=== PATIENT | male | born 1960 | race Caucasian/White ===

== ENCOUNTER → 2024-11-28 08:03 | Outpatient (REF) | payer MEDICARE, OTHER, SELFPAY | LOC: HWRCS 08:03 | PROVIDERS: ATTENDING PHYSICIAN Nurse Practitioner Gerontology; FAMILY PHYSICIAN Physician Assistant Medical | DX: I25.10 Atherosclerotic heart disease of native coronary artery without angina pectoris (principal); R53.83 Other fatigue | CPT/HCPCS: 78452; 93017; A9500 ==

== ENCOUNTER → 2024-12-04 11:06 | Outpatient (REF) | payer MEDICARE, OTHER, SELFPAY | LOC: RCS 11:06 | PROVIDERS: ATTENDING PHYSICIAN Nurse Practitioner Gerontology; FAMILY PHYSICIAN Physician Assistant Medical | DX: I25.10 Atherosclerotic heart disease of native coronary artery without angina pectoris (principal) | CPT/HCPCS: 93306 ==

== ENCOUNTER → 2025-01-01 10:12 | Outpatient (REF) | payer MEDICARE, OTHER, SELFPAY | LOC: PAVMRI 10:12 | PROVIDERS: ATTENDING PHYSICIAN Physician Assistant Surgical; FAMILY PHYSICIAN Physician Assistant Medical | DX: M48.02 Spinal stenosis, cervical region (principal); M54.2 Cervicalgia; M54.12 Radiculopathy, cervical region | CPT/HCPCS: 72141 ==

== ENCOUNTER → 2025-02-27 09:49 | Outpatient (REF) | payer MEDICARE, OTHER, SELFPAY | LOC: PAVMRI 09:49 | PROVIDERS: ATTENDING PHYSICIAN Specialist; FAMILY PHYSICIAN Physician Assistant Medical | DX: G31.84 Mild cognitive impairment of uncertain or unknown etiology (principal) | CPT/HCPCS: 70551 ==

== ENCOUNTER → 2025-04-09 08:20 | Outpatient (REF) | payer MEDICARE, OTHER, SELFPAY ==
[2025-04-09 11:12] LABS: Hematocrit 43.6 % (39.0-52.0); Hemoglobin 15.4 g/dL (13.0-18.0); Mean Corp Hgb Conc. 35.3 g/dL (33.0-37.0); Mean Corpuscular Hgb 30.8 pg (27.0-31.0); Mean Corpuscular Volume 87.2 fL (80.0-94.0); Mean Platelet Volume 9.7 fL (7.4-10.4); Platelet Count 229 10^3/uL (130-400); Red Cell Dist. Width 12.4 % (11.5-14.5); White Blood Cell Count 7.7 10^3/uL (4.8-10.8)
[2025-04-09 12:22] LABS: ALT (SGPT) 18 U/L (0-50); AST (SGOT) 20 U/L (17-59); Albumin 4.7 g/dl (3.5-5.0); Alkaline Phosphatase 55 U/L (38-126); Blood Urea Nitrogen 15 mg/dl (9-20); Calcium 9.2 mg/dl (8.4-10.2); Carbon Dioxide 25 mmol/L (22-30); Chloride 104 mmol/L (98-107); Glucose 120 mg/dl (70-99); Potassium 4.9 mmol/L (3.5-5.1); Sodium 139 mmol/L (135-145); Total Bilirubin 0.9 mg/dl (0.2-1.3); Total Protein 7.3 g/dl (6.3-8.2); eGFR > 60.00
== END ==
LOC: SDSPAT 08:20
PROVIDERS: ATTENDING PHYSICIAN Orthopaedic Surgery Orthopaedic Surgery of the Spine; FAMILY PHYSICIAN Physician Assistant Medical; OTHER PHYSICIAN Internal Medicine
DX: Z01.818 Encounter for other preprocedural examination (principal)
CPT/HCPCS: 80053; 85027; 86850; 86900; 86901; 87070; 93005

== ENCOUNTER → 2025-04-10 07:57 | Outpatient (REF) | payer MEDICARE, OTHER, SELFPAY | LOC: HWRAD 07:57 | PROVIDERS: ATTENDING PHYSICIAN Internal Medicine Gastroenterology; FAMILY PHYSICIAN Physician Assistant Medical | DX: R10.0 Acute abdomen (principal); R10.30 Lower abdominal pain, unspecified | CPT/HCPCS: 74176 ==

== ENCOUNTER 2025-04-18 06:10 | Day surgery (SDC) | payer MEDICARE, OTHER, SELFPAY ==
[2025-04-09 13:27] VITALS: BMI 35.3
[2025-04-09 14:47] VITALS: BMI 35.3
--- NOTE | 2025-04-11 14:05 | PTCARENOTE ---
Patients 6/2 ECG abnormal- reviewed by Dr. Vazquez- no additional interventions required
[2025-04-18] VITALS (13 sets, daily range): BP systolic 144–174; BP diastolic 85–105; BMI 35.3
[2025-04-18] MEDS: LYRICA 150 MG PO (10:15)
[2025-04-18] MEDS: METHOCARBAMOL 1500 MG PO (10:15)
[2025-04-18] MEDS: CELEBREX 200 MG PO (10:15)
[2025-04-18] MEDS: TYLENOL 1000 MG PO (10:15)
[2025-04-18] MEDS: NORMOSOL-R/PLASMALYTE-A 1000 IV (10:16)
[2025-04-18] MEDS: DILAUDID 0.5 MG IV (13:41)
[2025-04-18] MEDS: DILAUDID 0.25 MG IV ×2 (14:02→14:21)
[2025-04-18] MEDS: ROXICODONE 5 MG PO (15:57)
== END 2025-04-18 16:35 | disposition home or self-care (01) ==
LOC: SDS 06:10
PROVIDERS: ATTENDING PHYSICIAN Orthopaedic Surgery Orthopaedic Surgery of the Spine
DX: M48.02 Spinal stenosis, cervical region (principal)
CPT/HCPCS: 22554; 22551; 22552; 22853; C1713; C1776; 72020; 86900; 86901

== ENCOUNTER 2025-04-20 21:14 | Inpatient (IN) | payer MEDICARE, OTHER, SELFPAY ==
[2025-04-20] VITALS (8 sets, daily range): BP systolic 137–169; BP diastolic 78–96; BMI 32.9; BMI 32.6
[2025-04-20 16:00] LABS: Hemoglobin 15.1 g/dL (13.0-18.0); Mean Corpuscular Hgb 31.1 pg (27.0-31.0); Mean Corpuscular Volume 86.6 fL (80.0-94.0); Mean Platelet Volume 9.2 fL (7.4-10.4); Platelet Count 208 10^3/uL (130-400); Red Blood Cell Count 4.85 10^6/uL (4.70-6.10); Red Cell Dist. Width 12.4 % (11.5-14.5); White Blood Cell Count 15.5 10^3/uL (4.8-10.8)
[2025-04-20 16:23] LABS: Troponin I < 0.012 ng/ml
[2025-04-20 16:37] LABS: ALT (SGPT) 17 U/L (0-50); AST (SGOT) 25 U/L (17-59); Albumin 4.7 g/dl (3.5-5.0); Alkaline Phosphatase 46 U/L (38-126); Blood Urea Nitrogen 22 mg/dl (9-20); Carbon Dioxide 25 mmol/L (22-30); Chloride 104 mmol/L (98-107); Glucose 161 mg/dl (70-99); Potassium 4.6 mmol/L (3.5-5.1); Sodium 139 mmol/L (135-145); Total Protein 7.6 g/dl (6.3-8.2); eGFR > 60.00
--- NOTE | 2025-04-20 16:53 | ED.GENMED ---
History of Present Illness
General
Chief Complaint: Swallowing Problem
Source: patient
Exam Limitations: none
Time Seen by Provider: 04/20/25 16:29
Nursing documentation reviewed up to this point in time: agreed with
History of Present Illness
History of Present Illness:
64-year-old male with history of NIDDM, HTN, OH, stent, chronic neck pain, back pain, neuropathy, on 04/18/2025 [address] C4-[address] Seun Velasquez.
Two days ago, after surgery, went home and vomited 'for 8 hours straight' since then his neck and upper chest wall muscles have been sore.
Next day he found he could not swallow without regurgitating it up. He tried water, tried to take his pills, even his saliva he has been spitting out. He feels everything is going 'into my wind pipe (pointing to right lung). cannot swallow anything
without coughing fit and spitting it up, burning and spasms in his esophagus..Denies fever or pain related to his surgery.
Past History
Past History
ED Past Medical History: CAD, HTN, Hypercholesterolemia, NIDDM, Psychiatric (Anxiety) and Other (Pancreatitis)
ED Past Surgical History: Orthopedic (Right knee surgery, right carpal tunnel surgery)
Social History
Tobacco: Non-smoker
Alcohol: Former
Drug: None
Employment: Employed
Family History
Family History: Negative Diabetes, Hypertension or CAD
Review of Systems
Review of Systems
Allergies reviewed?: Yes
All Other Systems: ROS reviewed and negative except as documented in HPI and ROS
Constitutional: Denies fever
EENT: Reports other (Unable to swallow without severe coughing spells and feeling like 'it is going into my lungs.'); Denies sore throat
Respiratory: Reports cough (With swallowing only); Denies trouble breathing
Cardiac: Denies chest pain
ABD/GI: Denies abdominal pain, nausea or vomiting
Musculoskeletal: Denies edema
Skin: Reports other (Small dry gauze dressing anterior neck)
Neurological: Denies dizzy, headache, weakness or numbness
Phy Exam
Physical Exam
Physical Exam:
GENERAL: No acute distress. A&Ox3.
CONSTITUTIONAL: Afebrile.
EYES: clear, conjunctivae normal
ENMT: moist mucus membranes, Pharynx nl, speaking well.
RESPIRATORY: Regular respirations, nonlabored, lungs clear.
CARDIOVASCULAR: Regular rate and rhythm, no murmurs, no rubs. Mildly tachycardic at 105.
GI: Soft, nontender, normal BS
MUSCULOSKELETAL: Moves with ease. Well perfused.
SKIN: Warm, dry, pink, Small dry gauze dressing anterior neck with mild old ecchymosis immediately around it
PSYCH: Normal mood and affect. Well kept, interactive and appropriate
NEUROLOGIC: Awake, alert and oriented. No focal neurological deficits
Course
Orders/Labs/Results
Orders:
Orders
04/20/25 15:12
Electrocardiogram (*1) Urgent
Reason for Study: Abdominal Pain
EKG- Treatment ONCE
04/20/25 15:53
Complete Blood Count/No Diff Urgent
Comprehensive Metabolic Panel Urgent
Troponin I Urgent
04/20/25 17:45
CR Soft Tissue Neck Urgent
Comment:
Reason For Exam: trouble swallowing 2 days post neck spine surgery
04/20/25 17:46
CR Chest - 2 Views Urgent
Comment:
Reason For Exam: feels he is aspirating 2 days post ortho neck surg
04/20/25 18:06
Pantoprazole [Protonix IV] 80 mg IV NOW STA
04/20/25 18:07
0.9% Sodium Chloride 1000 ml [Nss] 1,000 ml IV BOLUS
04/20/25 20:[address] Non Medication Order As Directed
Physician Order: please complete med rec. thanks
Above order entered?: Yes
04/20/25 20:59
Admit/Transfer Patient As Directed
Co-Sign Provider:
Level of Care: Inpatient admission
Assign to:: Medical/Surgical
Physician / Group: abdoul mendoza
Diagnosis: GERD/esophagitis
Reason for Hospitalization: GERD/esophagitis
Expected length of stay greater than two midnights?: Yes
ELOS- Estimated Length of Stay in days: 3
I certify the patient meets the requirements for IP care: Yes
04/20/25 21:00
PRN Pain Medication Management As Directed
May give lesser potent ordered pain med per pt: Yes
preference::
Protocol:: Medication orders for pain may be administered in a
manner that supports deferring to patient preference
when the pt is:
- Requesting an ordered lesser potent pain medication.
Least to most potent pain medications are defined
as: acetaminophen < NSAID < tramadol < opioids
(morphine, oxycodone, hydromorphone).
- Requesting a lesser dose of the same medication IF
ORDERED.
- Requesting a less intrusive route of administration
if both routes are prescribed by the provider (PO <
IV).
04/20/25 21:01
Code Status As Directed
Resuscitation Status: Full Code
04/20/25 21:47
0.9% Sodium Chloride 1000 ml [Nss] 1,000 ml IV 100 mls/hr
Bisacodyl [Dulcolax] 10 mg RECTAL [id number] PRN
Docusate W/Senna [Senokot-S] 1 tablet PO BIDPRN PRN
Labetalol HCl [Trandate] 10 mg IV Q6HPRN PRN
Polyethylene Glycol Powder [Miralax] 17 grams PO DAILYPRN PRN
04/20/25 21:47
GASTROINTESTINAL CONSULT Routine
Consulting Provider: Salguti,Petra
Was physician already notified: Yes
Activity As Directed
Activity Level: As Tolerated
Vital Signs As Directed
Frequency: Per unit guidelines
Speech Therapy Eval & Treat Routine
DX Deep Vein Thrombosis Video Routine
04/20/25 22:00
CeFAZolin 1 GRAM [Ancef] 1 gram in 5 ml IV Q8H
Flush (0.9% Sodium Chloride) [Flush (Nss)] See Dose Instructions IV PER PROTOCOL
04/21/25 04:26
Complete Blood Count/With Diff IN AM
04/21/25 Breakfast
NPO
Allow oral meds: No
Allow clear liquids: Sips of Clears
NPO with Ice Chips: Yes
Comment: sips of clears with supervision teaspoon
04/21/25 08:00
Pantoprazole [Protonix IV] 40 mg IV BID
04/21/25 18:00
Enoxaparin Sodium [Lovenox] 40 mg SC QPM
04/22/25 04:41
Complete Blood Count/With Diff IN AM
04/23/25 06:00
Complete Blood Count/With Diff IN AM
Abnormal Lab Results
04/20/25
15:53
WBC 15.5 H 10^3/uL
(4.8-10.8)
MCH 31.1 H pg
(27.0-31.0)
BUN 22 H mg/dl
(9-20)
Glucose 161 H mg/dl
(70-99)
Total Bilirubin 3.0 H mg/dl
(0.2-1.3)
04/20/25 15:53
04/20/25 15:53
Vital Signs
Initial and Last Documented VS:
Initial Vital Signs
Temp Pulse Resp BP Pulse Ox
99.4 F 113 16 151/96 98
04/20/25 15:02 04/20/25 15:02 04/20/25 15:02 04/20/25 15:02 04/20/25 15:02
Last Documented Vital Signs
Temp Pulse Resp BP Pulse Ox
98.2 F 85 16 151/73 96
04/22/25 07:30 04/22/25 07:30 04/22/25 07:30 04/22/25 07:30 04/22/25 07:30
Receiving Lead consulted with Physician
Receiving Lead consulted with physician?: Yes
Name of Physician Consulted: Elly
MDM/Problems Addressed
Differential Diagnosis Includes:
GERD, esophagitis, esophageal obstruction
MDM/Problems Addressed:
64-year-old male with history of NIDDM, HTN, OH, stent, chronic neck pain, back pain, neuropathy, on 04/18/2025 had C4-[address] Seun Velasquez.
Two days ago, after surgery, went home and vomited 'for 8 hours straight' since then his neck and upper chest wall muscles have been sore.
Next day he found he could not swallow without regurgitating it up. He tried water, tried to take his pills, even his saliva he has been spitting out. He feels everything is going 'into my wind pipe (pointing to right lung). Denies fever or pain
related to his surgery.
EKG: Sinus tachycardia with a rate of 105, no change from previous
5:30 PM:
CBC: WBC 15.5 most likely reactive to surgery, vomiting, coughing spells, stress reaction
CMP: No clinically significant abnormalities
*EKG
EKG Intrepretation Date: 04/20/25
Interpretation: abnormal
Rate: tachycardiac
Rhythm: sinus
Ely: normal axis
Interval: normal interval
QRS Pattern: normal QRS
Ischemia: no ischemia
*Critical Care Note
Total Time (30-74mins, 75-104mins- exclusive of procedures): Not Applicable
ED Attending Note
-
Portions of this chart may have been created with voice recognition software.� Occasional wrong word or��sound alike� substitutions may have occurred due to the inherent limitations of voice recognition software.
Discharge Plan
Departure
Patient Disposition: Admit
Date of Disposition: 04/20/25
Time of Disposition: 20:14
Admit to: Med/Surg
Presentation/result/management discussed w/ accepting MD/DO: Hospitalist
Condition: Good
Discharge Problem:
Dysphagia
Interventions
Interventions:
*Risk Screen - Suicide Last Done: 04/20/25 22:09
*General Assessment Last Done: 04/20/25 17:27
*Neglect/Abuse Screening Last Done: 04/20/25 17:27
*ED- Fall Risk Assessment Last Done: 04/20/25 17:27
*ED COVID-19 Vaccine History Last Done: 04/20/25 21:59
*Nursing Disposition Last Done: 04/20/25 21:44
ED-EENT Assessment Last Done: 04/20/25 17:27
YN-Ggfmkv-Ssiufnacbk Assessment Last Done: 04/20/25 17:27
ED- Pulmonary Assessment Last Done: 04/20/25 17:27
ED- Neurological Assessment Last Done: 04/20/25 17:27
ED Swallowing Screen Last Done: 04/20/25 19:26
Discharge Date and Time
Discharge Date/Time: 04/20/25 21:44
[2025-04-20] MEDS: PROTONIX IV 80 MG IV (18:15)
[2025-04-20] MEDS: NSS 1000 IV ×2 (18:15→22:14)
--- NOTE | 2025-04-20 20:19 | HPS.HSE ---
Addendum entered and electronically signed by Adelita Solorzano DO 04/20/25 22:05:
Dr. Seun Ruff texted back. He is currently at a conference in [place] and will be home on Wednesday, and will see the patient then. In the interim, he noted that the patient had a very thick neck and they had to retract his esophagus a fair
amount and he is recommending, Decadron 10 mg IV every 8 hours. He said if there are any issues he would have to be transferred to [place]. If the diagnosis is dysphagia, causing symptoms, the plan will be to continue the steroids. Monitor for
symptoms and if he improves with steroids he can go home. We will obtain a swallowing study as well and speech evaluation.
Addendum entered and electronically signed by Adelita Solorzano, 04/20/25 21:32:
Patient is seen and examined. I have reviewed the patient with see above and agree with her history and physical and assessment and plan of care as per below. In the emergency department the patient continues to have inability to tolerate orals.
For this reason they did not try a GI cocktail. The surgeon who performed his cervical spine surgery was notified that the patient is in the emergency department. The CT scan of his neck shows appropriate postop findings. Chest x-ray was
unremarkable. In the emergency department he received IV Protonix and IV fluids. He is only urinated 1 time today and he said it was dark urine. He denies chest pain, no shortness of breath, no abdominal pain, no dysuria.
Vital signs remarkable for blood pressure 169/88, pulse 101, temperature 99.4
Physical exam findings remarkable for abdomen is soft nontender nondistended normoactive bowel sounds, cardiovascular regular rate and rhythm no murmurs or gallops, lungs are clear to auscultation bilaterally no wheezes rales rhonchi, neuro no focal
deficits and grossly intact
Labs remarkable for WBC 15.5, BUN 22, glucose 161, total bilirubin 3.0
Assessment and plan of care
# Dysphagia, vomiting status post C4-6 ACDF on April 18. The patient denies abdominal pain at this time. His total bilirubin is noted to be 3.0. He has no abdominal pain on examination. We will consult gastroenterology, obtain a video swallow
study, continue the patient on IV fluids, n.p.o. status, IV PPI therapy, IV Zofran as needed
-Repeat LFTs in the morning, hold off on ultrasound of the abdomen for now pending repeat labs, if the patient develops abdominal pain will order ultrasound of the abdomen.
-The patient was ordered Keflex p.o. outpatient postoperatively, will start the patient on IV Ancef for postoperative antibiotic coverage.
# Essential hypertension
-Hold on oral medications at this time, continue IV labetalol as needed
Original Note:
Family Physician
-
Family Physician: Kathleen Bruno
Chief Complaint
-
vomiting,unable to swallow
History of Present Illness
64-year-old male with history of NIDDM, HTN, [place], stent, chronic neck pain, back pain, neuropathy, on 04/18/2025 had C4-[address] Seun Velasquez. started vomiting as soon as he got home for straight 6 hours. patient was not able to eat or drink. it
will regurgitate as soon as he start to drink or eat. he gets the coughing spells. patient complained of severe esophageal spasm and get pain in his chest muscles. he thinks that everything he eat and drinks going to lungs. denied abdominal pain,
diarrhea. denied fever, chills, chest pain,sob. denied MCGEE,dizzy or syncope. denied dysuria or hematuria.
chest x ray negative. soft tissue neck pending. Patient received normal saline, Protonix in ER. Admitted for further management
Colonoscopy and EGD 2 weeks ago with no acute finding
Medical History
Past Medical History
Past Medical History: Reports Other
Additional Past Medical History:
Insomnia
Type 2 diabetes
Hypertension
Coronary artery disease
Bladder retention
Hyperlipidemia
NSVT
PACs
Past Surgical History: Reports Other
Additional Past Surgical History:
Cholecystectomy
Meniscal tear repair
Carpal tunnel release
retina surgery
Social History
Tobacco: Former Smoker
Alcohol: Former
Drug: Marijuana
Family History
Family History: Not pertinent
Allergies / Home Medications
Allergies reflects when Allergies were last updated in [employer].
Home Medications with original date entered in [employer]
Allergy/Medication List:
Allergies
Allergy/AdvReac Type Severity Reaction Status Date / Time
mold Allergy wheezing/stuffy Verified 04/18/25 09:51
nose
ramipril (From Altace) Allergy Rash Verified 04/18/25 09:51
Home Medications
Ketorolac Eye Drops 1 drp LEFT EYE QID 04/11/25
Medical Marijuana 1 dose inhalation PRN PRN anxiety/pain 04/11/25
Men's Multivitamin Gummies 1 gum PO DAILY 04/11/25
Nitric Oxide Tablet 04/11/25
Nitric Oxide Tablet 1 dose PO DAILY 04/11/25
aspirin 81 mg tablet 81 mg PO DAILY 04/11/25
famotidine 40 mg tablet 40 mg PO DAILY 04/11/25
gabapentin 100 mg tablet 100 mg PO QID 04/11/25
pantoprazole 40 mg tablet,delayed release 40 mg PO DAILY 04/11/25
sertraline 50 mg tablet 50 mg PO DAILY 04/11/25
solifenacin 10 mg tablet 10 mg PO DAILY 04/11/25
trazodone 100 mg tablet 100 mg PO HS 04/11/25
metoprolol succinate 50 mg tablet,extended release 24 hr 50 mg PO DAILY 04/18/25
semaglutide 1 mg/0.2 mL subcutaneous syringe mg SC 04/18/25
Review of Systems
-
Constitutional: Reports No Symptoms
EENT: Reports No Symptoms
Respiratory: Reports No Symptoms
Cardiac: Reports No Symptoms
Abdomen/GI: Reports Vomiting and Other (Esophageal spasm, regurgitation)
: Reports No Symptoms
Musculoskeletal: Reports No Symptoms
Skin: Reports No Symptoms
Neurological: Reports No Symptoms
Endocrine: Reports No Symptoms
Hematologic/Lymphatic: Reports No Symptoms
Psych: Reports No Symptoms
Physical Exam
Vital Signs
Vital Signs
Temp Pulse Resp BP Pulse Ox
99.4 F 105 18 157/79 99
04/20/25 15:02 04/20/25 19:17 04/20/25 19:17 04/20/25 19:16 04/20/25 19:55
Physical Exam
General: Well Developed, Well Nourished and No Apparent Distress
HEENT: NormoCephalic, Moist mucous membranes and Atraumatic
Respiratory: Clear
Cardiac: S1/S2 and Regular Rhythm; No Murmur or Rub
GI: Soft, Non Tender, Non Distended and Normal Bowel Sounds; No Organomegaly
Rectal: Deferred by Provider
Musculoskeletal: No Clubbing, No Cyanosis and No Edema
Skin: No Rash
Neuro: AO x 3 and Nonfocal/grossly intact
Psych: Calm
Laboratory Results
-
04/20/25 15:53
04/20/25 15:53
Laboratory Results
Total Bilirubin 3.0 mg/dl (0.2-1.3) H 04/20/25 15:53
AST 25 U/L (17-59) 04/20/25 15:53
ALT 17 U/L (0-50) 04/20/25 15:53
Alkaline Phosphatase 46 U/L (38-126) 04/20/25 15:53
Troponin I < 0.012 ng/ml 04/20/25 15:53
Data Reviewed
-
Diagnostic Radiology: Report Reviewed by me
Lab Data: Labs Reviewed by me
Impression/Plan
-
# Dysphagia/burning and spasm concerns for GERD/esophagitis
- Chest x-ray with no acute finding
-Soft tissue neck pending
- Colonoscopy and EGD with 2 weeks ago with no acute findings
- IV PPI continued
-fluid for hydration
-keep patient NPO
-speech consult
# Leukocytosis likely stress reaction
- WBCs 15.5, patient is afebrile
- GI consult
#hyperbili
-hxt of gallstones
-LFT in AM
-denied any abdominal pain
# Recent C4 C6 ACDF
- orthopedic consulted
-iv Ancef post operatively
#Anxiety
# Hypertension
- labetalol continued
# DVT prophylaxis
- Lovenox subcu
# CODE STATUS
- Full code
--- NOTE | 2025-04-20 22:00 | TRANSFER ---
pt arrived from ED via stretcher accompanied by staff. pt ambulated from stretcher to bed without assistance. BP elevated at 155/81, HR 103, RR 16, 98% on RA, febrile at 100.1. provider notified. no new orders at this time. will continue to monitor
closely.
[2025-04-20] MEDS: ANCEF 5 IV (22:14)
[2025-04-20] MEDS: DECADRON 10 MG IV (22:24)
[2025-04-21 05:15] LABS: % Basophils 0.2 % (0-2); % Immature Granulocytes 0.5 % (0-0.5); % Lymphocytes 3.7 % (20.5-51.1); % Monocytes 2.3 % (1.7-9.3); % Neutrophils 93.3 % (42.2-75.2); Absolute Immature Granulocytes 0.1 10^3/uL (0-0.05); Absolute Lymphocytes 0.4 10^3/uL (1.2-3.4); Absolute Monocytes 0.3 10^3/uL (0.1-0.6); Hematocrit 38.5 % (39.0-52.0); Hemoglobin 13.5 g/dL (13.0-18.0); Mean Corp Hgb Conc. 35.1 g/dL (33.0-37.0); Mean Corpuscular Hgb 30.6 pg (27.0-31.0); Mean Corpuscular Volume 87.3 fL (80.0-94.0); Mean Platelet Volume 9.5 fL (7.4-10.4); Nucleated Red Blood Cells % 0 % (-); Platelet Count 184 10^3/uL (130-400); Red Blood Cell Count 4.41 10^6/uL (4.70-6.10); Red Cell Dist. Width 12.3 % (11.5-14.5); White Blood Cell Count 11.8 10^3/uL (4.8-10.8)
[2025-04-21] MEDS: ANCEF 5 IV ×3 (05:24→21:57)
[2025-04-21 05:42] LABS: ALT (SGPT) 15 U/L (0-50); AST (SGOT) 21 U/L (17-59); Alkaline Phosphatase 45 U/L (38-126); Direct Bilirubin 0.2 mg/dl (0.0-0.4); Total Bilirubin 1.8 mg/dl (0.2-1.3); Total Protein 6.5 g/dl (6.3-8.2)
[2025-04-21 07:50] VITALS: BP 119/84
[2025-04-21] MEDS: NSS 1000 IV ×2 (08:13→17:34)
[2025-04-21] MEDS: DECADRON 10 MG IV ×2 (08:14→16:44)
[2025-04-21] MEDS: PROTONIX IV 40 MG IV ×2 (08:15→20:01)
[2025-04-21] MEDS: NSS (PRESERVATIVE FREE) 10 ML IV ×2 (08:15→20:01)
--- NOTE | 2025-04-21 08:24 | CON.GI ---
Addendum entered and electronically signed by Petra Payan MD 04/21/25 10:46:
I saw and examined the patient.
The PARAFFINER or PA's note was reviewed and I agree with the note.
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 Seun Velasquez, 04/18/2025 presenting with complaints of
nausea and vomiting and chest spasms postsurgery. Patient reports that he was not able to swallow secretions, it was painful and he was choking on liquids. As per documentation, patient had a very thick neck and had to retract esophagus at fair
amount during the procedure. He was just started on Decadron 04/20/2025.
Patient reports that even prior to the surgery, he has had episodes of difficulties with swallowing cookies and cakes, this was happening at least twice a week. He had an upper endoscopy and colonoscopy with Dr. Tyson about 4 weeks ago or so, he
had to undergo dilation of the upper endoscopy, details not available to review and patient does not have the report. Colonoscopy showed 1 polyp as per patient. Other than that, he has history of chronic intermittent GERD, was on PPI/H2 linda as
outpatient, some IBS constipation and indigestion symptoms for which he has then follow-up with Dr. Tyson and has upcoming appointment as well.
-Dysphagia to liquids/solids, more recently postprocedure, some difficulties with secretions as well. Part of it could be edema related to the procedure with underlying history of solid food dysphagia.
At this time I would suggest video swallow exam - will follow speech pathology recommendations with the diet.
Decadron should help with postprocedure edema.
No need for EGD or upper GI.
Continue PPI IV twice daily.
-History of IBS�C
Continue follow-up with outpatient GI
-Elevated total bilirubin, mainly indirect, likely Gilbert's.
Will get abdominal ultrasound
Original Note:
Consultation
-
Date/Time Consultation Requested: 04/20/252146
Date/Time Consultation Performed: 04/21/25 [id number]
Requesting Provider: Jeanie DANIEL
Performing Provider: Dr Payan / Maria Teresa Ricketts PA-C
Reason for Consultation: dysphagia
Medical History
Chief Complaint / HPI
Chief Complaint: dysphagia
History of Present Illness:
This is a 64-year-old male with a past medical history of NIDDM, HTN, CAD/AK (s/p stent), chronic neck pain, back pain, neuropathy, GERD, IBS and colon polyps who underwent cervical spine surgery on 04/18/2025 (C4-6 anterior cervical discectomy and
fusion) by Dr. Seun Velasquez, developed nausea with persistent vomiting for 6 hours straight after surgery. The following day he complained of significant esophageal spasms and chest pain, with complaints of dysphagia, with coughing spells and
sensation that 'nothing is going down' after swallowing, and presented to the ER. He had workup in the ER including chest x-ray and x-ray of the soft tissues of the neck, which were negative. He was noted to be tachycardic, EKG showed sinus rhythm.
He denied any shortness of breath or difficulty breathing, but was concerned about aspiration and 'things going into my windpipe.' He denied any fever, chills or abdominal pain. The nausea and vomiting resolved after the initial episode following
surgery.
Patient reports a history of reflux and is established with GI, Dr. Vlad Tyson. He is on famotidine which he reports works well to control his GERD. About 6 months ago he did start to notice occasional dysphagia to solid foods (cookies, cake) that
felt like the food 'was going down slowly.' He had no odynophagia then and symptoms did not progressively worsen. He had an endoscopy with Dr. Tyson about 3 weeks ago, with dilation, and reported resolution of his dysphagia symptoms post-dilation.
He does not smoke or drink alcohol. 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 Labs upon arrival in the ER showed leukocytosis (WBC 15) with stable hemoglobin (15.1) and platelet count (208). Total
bilirubin was elevated at 3.0. Today upon repeat, it has decreased to 1.8 with direct bilirubin normal at 0.2. LFTs otherwise normal.
He was given IV fluids and started on Protonix in the ER. Per his Orthopedic surgeon, Dr. Velasquez, he did have to significantly retract the esophagus during surgery due to patient habitus/neck circumference and recommended starting IV Decadron to treat
the inflammation. Patient has gotten 2 doses of Decadron since yesterday evening and feels slightly better. The spasms have stopped. Currently denies any SOB or chest pain; and continues to deny nausea, vomiting, abdominal pain, fevers or chills
now. A video swallow study with Speech evaluation has been ordered, pending.
Past Medical History
Past Medical History: Other (NIDDM, HTN, CAD/AK (s/p stent), chronic neck pain, back pain, neuropathy, GERD, IBS and colon polyps )
Past Surgical History: Other (C4-6 anterior cervical discectomy and fusion (Dr Velasquez 04/18/25))
Social History
Tobacco: Former Smoker (quit 30 yrs ago)
Alcohol: Former (sober for the past 7.5 years)
Drug: Marijuana (medical marijuana)
Employment: Retired
Family History
Family History: Reviewed & Not Pertinent (no family history of any GI malignancies)
Allergies / Home Medications
Allergy/AdvReac Type Severity Reaction Status Date / Time
mold Allergy wheezing/stuffy Verified 04/18/25 09:51
nose
ramipril (From Altace) Allergy Rash Verified 04/18/25 09:51
�Medication �Instructions �Recorded
Medical Marijuana 1 dose inhalation PRN PRN 04/11/25
anxiety/pain
aspirin 81 mg tablet 81 mg PO DAILY 04/11/25
famotidine 40 mg tablet 40 mg PO DAILY 04/11/25
pantoprazole 40 mg tablet,delayed 40 mg PO DAILY 04/11/25
release
sertraline 50 mg tablet 50 mg PO DAILY 04/11/25
trazodone 100 mg tablet 100 mg PO HS 04/11/25
metoprolol succinate 50 mg 50 mg PO DAILY 04/18/25
tablet,extended release 24 hr
cephalexin 500 mg capsule 500 mg PO QID 04/20/25
oxycodone 5 mg tablet 10 mg PO Q4H PRN moderate pain 04/20/25
tizanidine 2 mg capsule 2 mg PO Q8H PRN muscle spasms 04/20/25
Review of Systems
-
History Source: Patient
All other systems: A 12 pt ROS was Negative except as stated above in HPI
Vital Signs
Temp Pulse Resp BP Pulse Ox
98.7 F 106 18 152/87 96
04/21/25 03:28 04/20/25 23:17 04/20/25 23:17 04/20/25 23:17 04/20/25 23:17
Physical Exam
Exam
General: Well Developed, Well Nourished and No Apparent Distress
HEENT: Anicteric
Respiratory: Clear
Cardiac: Regular Rhythm
GI: Soft, Non Tender, Non Distended and Normal Bowel Sounds
Skin: Warm and Dry
Neuro: AO x 3
Psych: Calm
Results
WBC 11.8 10^3/uL (4.8-10.8) H 04/21/25 04:26
Hgb 13.5 g/dL (13.0-18.0) 04/21/25 04:26
Hct 38.5 % (39.0-52.0) L 04/21/25 04:26
MCV 87.3 fL (80.0-94.0) 04/21/25 04:26
Plt Count 184 10^3/uL (130-400) 04/21/25 04:26
Absolute Neuts (auto) 11.0 10^3/uL (1.4-6.5) H 04/21/25 04:26
Sodium 139 mmol/L (135-145) 04/20/25 15:53
Potassium 4.6 mmol/L (3.5-5.1) 04/20/25 15:53
Chloride 104 mmol/L (98-107) 04/20/25 15:53
Carbon Dioxide 25 mmol/L (22-30) 04/20/25 15:53
BUN 22 mg/dl (9-20) H 04/20/25 15:53
Creatinine 1.0 mg/dL (0.7-1.3) 04/20/25 15:53
Calcium 10.0 mg/dl (8.4-10.2) 04/20/25 15:53
Total Bilirubin 1.8 mg/dl (0.2-1.3) H D 04/21/25 04:26
AST 21 U/L (17-59) 04/21/25 04:26
ALT 15 U/L (0-50) 04/21/25 04:26
Alkaline Phosphatase 45 U/L (38-126) 04/21/25 04:26
Diagnostic Image Results:
04/20/25 Chest x-ray:
No acute cardiopulmonary process.
04/20/25 Soft tissues of neck x-ray:
Post-operative changes with anterior plate and screws bridging the C4-C6 6 level with C4-C5 and C5-C6 disc spacers in position.
No radiopaque soft tissue foreign body is seen.
Prior GI Procedures:
EGD:
~3 weeks ago EGD (Dr. Vlad Tyson):
per patient, w/ dilation -- no report available for review
10/2020 EGD (Dr. Mcfadden)
Normal esophagus.
- Z-line regular, 40 cm from the incisors.
- Acute gastritis. Biopsied.
- Normal duodenal bulb, first portion of the duodenum
and second portion of the duodenum.
Path: biopsies negative (no evidence of H pylori or Cha's esophagus)
Colonoscopy:
~3 weeks ago Colonoscopy (Dr. Vlad Tyson):
per patient, normal -- no report available for review
10/2020 Colonoscopy (Dr. Mcfadden)
- Hemorrhoids found on perianal exam.
- Three 2 to 3 mm polyps in the cecum, removed with a
jumbo cold forceps. Resected and retrieved.
- One 5 mm polyp in the sigmoid colon, removed with a
cold snare. Resected and retrieved. Clip was placed.
- Two 3 mm polyps at the recto-sigmoid colon, removed
with a jumbo cold forceps. Resected and retrieved.
- Diverticulosis in the sigmoid colon and in the
distal descending colon.
- Non-bleeding internal hemorrhoids.
Path: Polyp of the sigmoid colon was tubular adenoma, otherwise hyperplastic polyps and unremarkable colorectal mucosa
Assessment / Plan
-
64-year-old male who underwent cervical spine surgery on 04/18/2025 (C4-6 anterior cervical discectomy and fusion) by Dr. Seun Velasquez, with complaints of nausea, vomiting (resolved now) and dysphagia post-op. He does have a history of GERD and was
experiencing solid food dysphagia for the past 6 months, which resolved after recent outpatient EGD with dilation with Dr. Tyson. Patient does feel slightly better today after receiving 2 doses of IV Decadron, as per Orthopedic surgeon. Esophageal
spasms have stopped. Currently denies any SOB, chest pain, nausea, vomiting, abdominal pain, fevers or chills. A video swallow study with Speech evaluation has been ordered, pending.
IMPRESSION / PLAN:
Dysphagia, acute, following cervical spine ACDF surgery 04/18/25 with significant manipulation/retraction of the esophagus during surgery
- etiology of the dysphagia due to post-op inflammation vs underyling motility disorder
- continue IV Decadron
- continue IV Protonix
- continue IV fluids
- await video swallow/Speech evaluation
- consider barium esophagram, will await the video swallow study results
- pt had a recent outpt EGD with dilation with his established GI, Dr. Tyson
GERD
- continue IV Protonix
Elevated bilirubin (indirect), with otherwise normal LFTs
- possible underlying Gilbert's
- T bili 3.0 upon admission, down to 1.8 today
- Direct bili 0.2, AST 21, ALT 15, alk phos 45
- continue to trend LFTs
- will order abdominal ultrasound to further assess liver
Colon Polyps
- prior h/o adenomas; up to date with colonoscopy
Other medical issues managed as per hospitalist team and Dr. Velasquez.
-
-
Thank you for consultation and allowing me to participate in the patient's care. Please call the business continuity director GI physician during the after hours with any questions or concerns.
--- NOTE | 2025-04-21 11:08 | W.PN.HOSP.TC ---
Today's Communication/Plan
-
see plan
Assessment / Plan
Assessment / Plan
Mr. Zen Camp is a 64 yo man with hx NIDDM, HTN, [place] s/p PCI, chronic neck pain s/p C4-6 ACDF (Anterior Cervical Discectomy and Fusion) by Dr. Kenny with post-op course complicated by vomiting and inability to eat or drink. He complained of
severe esophageal spasm. Case discussed with Dr. kenny who reported that they had to retract his esophagus a fair amount during surgery, IV Decadron recommended. CT neck with appropriate post-op findings.
CT Neck;FINDINGS and IMPRESSION: Surgery of the lower cervical spine is seen with anterior plate and screws bridging the C4-C6 6 level with C4-C5 and C5-C6 disc spacers in position on lateral view.
No radiopaque soft tissue foreign body is seen.
There is small volume air in the anterior soft tissues of the neck which is most likely the sequela of recent surgery.
# Dysphagia/burning and spasm concerns for GERD/esophagitis
-may be post-op complication/inflammation as esophagus was retracted fair amount during surgery
- Chest x-ray with no acute finding
-Soft tissue neck results above - post-op findings
-NPO
-continue IV Decadron, IV PPI, IVF
- Colonoscopy and EGD 2 weeks ago with no acute findings
-speech consult appreciated, FEES ordered
-appreciate GI consult
-Dr. Kenny to see patient tomorrow
# Leukocytosis likely stress reaction
#hyperbili - indirect
-hxt of gallstones
-LFT in AM
-denied any abdominal pain
-abdominal US ordered
# Recent C4 C6 ACDF
-IV Ancef post-op (patient was on Keflex at home)
-Dr. Kenny to see patient tomorrow
#Anxiety
# Hypertension
- labetalol continued
# DVT prophylaxis
- Lovenox subcu
# CODE STATUS
- Full code
Anticipated Discharge: > 48 hours
Subjective/Interval History
-
Date of Service: April 21, 2025
esophageal spasm frequency decreasing
difficulty swallowing
Objective Data
-
Labs:
Laboratory Results
04/21/25
04:26
WBC 11.8 H
Hgb 13.5
Hct 38.5 L
Plt Count 184
Total Bilirubin 1.8 H D
AST 21
ALT 15
Alkaline Phosphatase 45
Vital Signs:
Vital Signs
Temp Pulse Resp BP Pulse Ox
98.4 F 95 14 119/84 100
04/21/25 07:50 04/21/25 07:50 04/21/25 07:50 04/21/25 07:50 04/21/25 07:50
I&O
04/20/25 04/21/25 04/22/25
06:59 06:59 06:59
Intake Total 1000 / 1000
Output Total 175 / 175 200 / 200
Balance 825 / 825 -200 / -200
Review of Systems
-
History Source: Patient
All other systems: Reviewed and negative
Physical Exam
-
General: No Apparent Distress and Conversant
HEENT: PERRLA and Other (neck in brace post-op)
Respiratory: Clear to Auscultation
Cardiac: Regular Rhythm and S1/S2
GI: Soft and Nontender
Musculoskeletal: No Edema
Neuro: AO x 3
Psych: Calm
Data Reviewed
-
Diagnostic Radiology: Report Reviewed by me
Labs: Labs Reviewed by me
--- NOTE | 2025-04-21 11:37 | PTOTSP ---
Speech Therapy
Presentation: Patient was oriented and cooperative. Patient's speech and language appeared to be WNL during conversation. Patient's voice appeared to be harsh/ hoarse which patient states is 'new' since surgery. Patient expressed discomfort within
his neck and esophagus at baseline. Per documentation, patient endured a C4-C6 ACDF on 04/18 which the surgeon needed to retract patient's esophagus a bit which is likely correlated to his symptoms.
Patient stated that since his surgery, patient has experienced discomfort, swelling, dysphagia, and coughing.
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 Patient denied interest in further trials.
Given his presentation, recommend NPO at this time.
Recommend ARHP sparingly ice chips with supervision as tolerated after oral care.
Recommendations:
1) NPO at this time
2) ARHP ice chips sparingly with supervision after oral care
3) Aspiration precautions
4) VSE/ FEES when appropriate
5) Medications not by mouth
Plan: PLUMBING INSTALLER will continue to follow to diet advancement; pending hospitalization.
[2025-04-21 15:37] VITALS: BP 152/84
--- NOTE | 2025-04-21 16:34 | CM ---
Alert awake oriented patient who lives with his ex Rosanne who lives in a 1 story home with 2 step to enter.He is independent in driving and in all activities of daily living.He was offered VN he declined need.
No VN hx / No SNF history
Pharmacy [facility]
PCP DR Bruno
PLAN Home Declined VN
[2025-04-21] MEDS: LOVENOX 40 MG SC (17:29)
--- NOTE | 2025-04-21 18:20 | PTCARENOTE ---
Received patient this am AAOx3. Pt NPO. Speech Therapy saw patient an pt was kept NPO. IVF infusing without difficulty. Pt off unit today for abdominal U/S. This evening patient stated ' that he had his family bring him his zoloft pill cause he
felt his anxiety building'. Dr. Orr made aware that patient took his own zoloft an said something after he had taken it. Pt OOB ambulating in the room independently with a steady gait. Made patient comfortable. Cont to assess patient status.
[2025-04-21 23:31] VITALS: BP 145/80
[2025-04-22] MEDS: DECADRON 10 MG IV ×2 (00:03→09:30)
[2025-04-22] MEDS: NSS 1000 IV ×2 (02:22→11:42)
[2025-04-22] MEDS: ANCEF 5 IV ×3 (05:48→22:26)
[2025-04-22 05:50] LABS: % Basophils 0.1 % (0-2); % Immature Granulocytes 0.5 % (0-0.5); % Lymphocytes 4.1 % (20.5-51.1); % Monocytes 2.3 % (1.7-9.3); Absolute Immature Granulocytes 0.1 10^3/uL (0-0.05); Absolute Lymphocytes 0.5 10^3/uL (1.2-3.4); Absolute Monocytes 0.3 10^3/uL (0.1-0.6); Absolute Neutrophils 11.4 10^3/uL (1.4-6.5); Hematocrit 36.5 % (39.0-52.0); Hemoglobin 12.7 g/dL (13.0-18.0); Mean Corp Hgb Conc. 34.8 g/dL (33.0-37.0); Mean Corpuscular Hgb 30.7 pg (27.0-31.0); Mean Corpuscular Volume 88.2 fL (80.0-94.0); Mean Platelet Volume 9.7 fL (7.4-10.4); Nucleated Red Blood Cells % 0 % (-); Platelet Count 220 10^3/uL (130-400); Red Blood Cell Count 4.14 10^6/uL (4.70-6.10); Red Cell Dist. Width 12.2 % (11.5-14.5); White Blood Cell Count 12.3 10^3/uL (4.8-10.8)
[2025-04-22 06:15] LABS: Blood Urea Nitrogen 22 mg/dl (9-20); Carbon Dioxide 20 mmol/L (22-30); Chloride 111 mmol/L (98-107); Estimated Creatinine Clearance > 125 ml/min; Glucose 181 mg/dl (70-99); Magnesium 2.1 mg/dl (1.6-2.3); Phosphorus 2.9 mg/dl (2.5-4.5); Potassium 4.2 mmol/L (3.5-5.1); Sodium 140 mmol/L (135-145); eGFR > 60.00
[2025-04-22 07:30] VITALS: BP 151/73
--- NOTE | 2025-04-22 09:25 | CON.MD ---
Consultation - Medical
-
Spoke with patient yesterdat
Pt s/p 2 level acdf with dysphagia. No problems breathing
Had a very thick neck with retraction
No eveidence of airway issues.
Recommend steorids.
Id dysphagia improves and can tolerate PO can be discharged.
Otherwise should get swallowing study
Explained to patient I am out of town and will return late tonight
Will stop in late tonight or tomorrow if he is still in the hospital
[2025-04-22] MEDS: NSS (PRESERVATIVE FREE) 10 ML IV ×2 (09:33→20:18)
[2025-04-22] MEDS: PROTONIX IV 40 MG IV ×2 (09:33→20:18)
--- NOTE | 2025-04-22 09:45 | W.PN.GI.CBS2 ---
Today's Communication / Plan
-
Dysphagia, acute, following cervical spine ACDF surgery 04/18/25 with significant manipulation/retraction of the esophagus during surgery
- etiology of the dysphagia due to post-op inflammation with underyling motility disorder
- continue IV Decadron, IV Protonix
- continue IV hydration for now
- Reviewed speech pathology notes, they were unable to perform the video swallow exam due to aspiration with ice chips but as per patient, since after that he has been able to drink water without any choking or coughing.
Await speech evaluation today again.
- pt had a recent outpt EGD with dilation with his established GI, Dr. Tyson, no need to repeat EGD at this time.
GERD
- continue IV Protonix
-History of IBS�C
Continue follow-up with outpatient GI
-Elevated total bilirubin, mainly indirect, likely Gilbert's.
Fatty liver noted abdominal ultrasound. He will f/u with his primary GI for this.
Other medical issues managed as per hospitalist team and Dr. Velasquez.
Assessment / Plan
-
64-year-old male who underwent cervical spine surgery on 04/18/2025 (C4-6 anterior cervical discectomy and fusion) by Dr. Seun Velasquez, with complaints of nausea, vomiting (resolved now) and dysphagia post-op. He does have a history of GERD and was
experiencing solid food dysphagia for the past 6 months, which resolved after recent outpatient EGD with dilation with Dr. Tyson. Patient does feel slightly better today after receiving 2 doses of IV Decadron, as per Orthopedic surgeon. Esophageal
spasms have stopped. Currently denies any SOB, chest pain, nausea, vomiting, abdominal pain, fevers or chills. A video swallow study with Speech evaluation has been ordered, pending.
IMPRESSION / PLAN:
Dysphagia, acute, following cervical spine ACDF surgery 04/18/25 with significant manipulation/retraction of the esophagus during surgery
- etiology of the dysphagia due to post-op inflammation with underyling motility disorder
- continue IV Decadron, IV Protonix
- continue IV hydration for now
- Reviewed speech pathology notes, they were unable to perform the video swallow exam due to aspiration with ice chips but as per patient, since after that he has been able to drink water without any choking or coughing.
Await speech evaluation today again.
- pt had a recent outpt EGD with dilation with his established GI, Dr. Tyson, no need to repeat EGD at this time.
GERD
- continue IV Protonix
-History of IBS�C
Continue follow-up with outpatient GI
-Elevated total bilirubin, mainly indirect, likely Gilbert's.
Fatty liver noted abdominal ultrasound. He will f/u with his primary GI for this.
Other medical issues managed as per hospitalist team and Dr. Velasquez.
Subjective
Subjective
Date of Service: April 22, 2025
Patient denies any abdominal pain, nausea or vomiting. He reports that the neck pain is much improved when he swallows. Able to swallow his secretions without any problem. Passing flatus but no bowel movements yet.
Objective
Data Reviewed
Laboratory Data:
Laboratory Results
04/22/25 04:41
04/22/25 04:41
Laboratory Results
Phosphorus 2.9 mg/dl (2.5-4.5) 04/22/25 04:41
Magnesium 2.1 mg/dl (1.6-2.3) 04/22/25 04:41
Total Bilirubin 1.8 mg/dl (0.2-1.3) H D 04/21/25 04:26
AST 21 U/L (17-59) 04/21/25 04:26
ALT 15 U/L (0-50) 04/21/25 04:26
Alkaline Phosphatase 45 U/L (38-126) 04/21/25 04:26
Vital Signs and I&O:
Vital Signs
Temp Pulse Resp BP Pulse Ox
98.2 F 85 16 151/73 96
04/22/25 07:30 06/15/25 07:30 04/22/25 07:30 04/22/25 07:30 04/22/25 07:30
I&O
04/21/25 04/22/25 04/23/25
06:59 06:59 06:59
Intake Total 1000 / 1000 1200 / 1200
Output Total 175 / 175 900 / 900
Balance 825 / 825 300 / 300
Physical Exam
Physical Exam
GI: Soft, Non Distended and Non Tender
--- NOTE | 2025-04-22 11:17 | PTCARENOTE ---
patient with orders for strict NPO- informed nurse that he is on his third cup of water today and that it is going down just fine- instructed patient on NPO order and reason for such. educated about aspiration, silent aspiration , risks of
aspiration and complications related aspiration. patient voiced understanding and accepted the risks involved. plan of care on going.
--- NOTE | 2025-04-22 12:25 | W.PN.HOSP.TC ---
Today's Communication/Plan
-
IV Decadron
VSE/FEES studies tomorrow
Assessment / Plan
Assessment / Plan
Mr. Zen Camp is a 64 yo man with hx NIDDM, HTN, [place] s/p PCI, chronic neck pain s/p C4-6 ACDF (Anterior Cervical Discectomy and Fusion) by Dr. Velasquez with post-op course complicated by vomiting and inability to eat or drink. He complained of
severe esophageal spasm. Case discussed with Dr. Velasquez who reported that they had to retract his esophagus a fair amount during surgery, IV Decadron recommended. CT neck with appropriate post-op findings.
CT Neck;FINDINGS and IMPRESSION: Surgery of the lower cervical spine is seen with anterior plate and screws bridging the C4-C6 6 level with C4-C5 and C5-C6 disc spacers in position on lateral view.
No radiopaque soft tissue foreign body is seen.
There is small volume air in the anterior soft tissues of the neck which is most likely the sequela of recent surgery.
# Dysphagia/burning and esophageal spasm post-op
-likely post-op complication/inflammation as esophagus was retracted fair amount during surgery
- Chest x-ray with no acute finding
-Soft tissue neck results above - post-op findings
-appreciate GI consult
- Colonoscopy and EGD 2 weeks ago with no acute findings - no need to repeat
-continue IV Decadron, IV PPI, IVF
-NPO with sips of clears, appreciate ST
-plan for VSE/ FEES study tomorrow
-Dr. Velasquez to see patient tomorrow
# Leukocytosis likely stress reaction/ steroids
#hyperbili - indirect
-hxt of gallstones
-LFT in AM
-denied any abdominal pain
-abdominal US ordered
# Recent C4 C6 ACDF
-IV Ancef post-op (patient was on Keflex at home)
-Dr. Velasquez to see patient tomorrow
#Anxiety
# Hypertension
- labetalol continued
# DVT prophylaxis
- Lovenox subcu
# CODE STATUS
- Full code
Anticipated Discharge: 24 - 48 hours
Subjective/Interval History
-
Date of Service: April 22, 2025
he feels better today, like he can swallow better
Objective Data
-
Labs:
Laboratory Results
04/22/25
04:41
WBC 12.3 H
Hgb 12.7 L
Hct 36.5 L
Plt Count 220
Sodium 140
Potassium 4.2
Chloride 111 H
Carbon Dioxide 20 L
BUN 22 H
Creatinine 0.7
Glucose 181 H
Calcium 9.0
Vital Signs:
Vital Signs
Temp Pulse Resp BP Pulse Ox
98.2 F 85 16 151/73 96
04/22/25 07:30 04/22/25 07:30 04/22/25 07:30 04/22/25 07:30 04/22/25 07:30
I&O
04/21/25 04/22/25 04/23/25
06:59 06:59 06:59
Intake Total 1000 / 1000 1200 / 1200
Output Total 175 / 175 900 / 900
Balance 825 / 825 300 / 300
Review of Systems
-
History Source: Patient
All other systems: Reviewed and negative
Physical Exam
-
General: No Apparent Distress and Conversant
HEENT: PERRLA and Other (neck in brace post-op)
Respiratory: Clear to Auscultation
Cardiac: Regular Rhythm and S1/S2
GI: Soft and Nontender
Musculoskeletal: No Edema
Neuro: AO x 3
Psych: Calm
Data Reviewed
-
Diagnostic Radiology: Report Reviewed by me
Labs: Labs Reviewed by me
[2025-04-22 15:30] VITALS: BP 162/85
--- NOTE | 2025-04-22 15:53 | W.PN.UPDATE ---
Update Note
Progress Note Update
patient feeling a lot better this afternoon, discussed plan with Dr. Velasquez. Will follow up on next , for now will decrease steroid dosing. Decadron can likely be fully discontinued tomorrow.
[2025-04-22] MEDS: LOVENOX 40 MG SC (17:31)
[2025-04-22] MEDS: DECADRON 4 MG IV (17:31)
--- NOTE | 2025-04-22 17:35 | W.PN.SP ---
Today's Communication / Plan
-
Zen doing much better
Swallowing better.
Can stop steroids
Spoke with Dr Orr, she would prefer speech see prior to discharge.
He is not having any issues breathing.
Stable for discharge from spine standpoint
Subjective / Objective
Subjective Data
Pt is feeling much better
Has been drinking full cups of water all day he said without any issues
His arms feel great and stronger he reports. His balancce is better he reports
Objective Data
Vital Signs
Temp Pulse Resp BP Pulse Ox
97.9 F 86 14 162/85 99
04/22/25 15:30 04/22/25 15:30 04/22/25 15:30 04/22/25 15:30 04/22/25 15:30
Intake and Output
04/21/25 04/22/25 04/23/25
06:59 06:59 06:59
Intake Total 1000 / 1000 1200 / 1200
Output Total 175 / 175 900 / 900
Balance 825 / 825 300 / 300
Intake:
Oral fluids 0 / 0
IV fluids (Total) 1000 / 1000 1200 / 1200
Output:
Urine, Voided 175 / 175 900 / 900
Other:
Number of approximated MODERATE 1
amounts of urine
Number of approximated LARGE 1
amounts of urine
Lab Data
04/22/25 04:41
04/22/25 04:41
Physical Exam
-
His arms feel stroger
Balance improved
[2025-04-22] MEDS: 0.45%NACL 1000 IV (22:26)
[2025-04-22 23:52] VITALS: BP 137/88
[2025-04-23] MEDS: DECADRON 4 MG IV ×2 (00:02→07:34)
[2025-04-23] MEDS: ANCEF 5 IV (06:28)
[2025-04-23 06:40] LABS: % Immature Granulocytes 0.3 % (0-0.5); % Lymphocytes 4.4 % (20.5-51.1); % Monocytes 3.6 % (1.7-9.3); % Neutrophils 91.7 % (42.2-75.2); Absolute Lymphocytes 0.4 10^3/uL (1.2-3.4); Absolute Monocytes 0.3 10^3/uL (0.1-0.6); Absolute Neutrophils 8.3 10^3/uL (1.4-6.5); Hematocrit 35.9 % (39.0-52.0); Hemoglobin 12.7 g/dL (13.0-18.0); Mean Corp Hgb Conc. 35.4 g/dL (33.0-37.0); Mean Corpuscular Hgb 30.6 pg (27.0-31.0); Mean Corpuscular Volume 86.5 fL (80.0-94.0); Mean Platelet Volume 9.5 fL (7.4-10.4); Nucleated Red Blood Cells % 0 % (-); Platelet Count 216 10^3/uL (130-400); Red Blood Cell Count 4.15 10^6/uL (4.70-6.10); Red Cell Dist. Width 12.1 % (11.5-14.5)
[2025-04-23 07:10] VITALS: BP 151/89
[2025-04-23 07:11] LABS: Blood Urea Nitrogen 19 mg/dl (9-20); Calcium 9.2 mg/dl (8.4-10.2); Carbon Dioxide 24 mmol/L (22-30); Chloride 109 mmol/L (98-107); Estimated Creatinine Clearance > 125 ml/min; Glucose 165 mg/dl (70-99); Magnesium 2.2 mg/dl (1.6-2.3); Potassium 4.2 mmol/L (3.5-5.1); Sodium 140 mmol/L (135-145); eGFR > 60.00
[2025-04-23] MEDS: 0.45%NACL IV (07:34)
[2025-04-23] MEDS: PROTONIX IV 40 MG IV (07:35)
[2025-04-23] MEDS: NSS (PRESERVATIVE FREE) 10 ML IV (07:35)
--- NOTE | 2025-04-23 08:43 | W.PN.HOSP.TC ---
Today's Communication/Plan
-
Discharge planning today
Assessment / Plan
Assessment / Plan
Physical exam:
General: Well Developed, Well Nourished and No Apparent Distress
HEENT: Normocephalic, Atraumatic and Moist Mucous Membranes
Respiratory: Clear to Auscultation; Negative Wheezes, Rales or Rhonchi
Cardiac: Regular Rhythm and S1/S2
GI: Soft, Nontender and Nondistended
Musculoskeletal: No Clubbing, No Cyanosis and No Edema
Neuro: Awake, Alert and Oriented
Psych: Calm
A/P:
# Dysphagia/burning and esophageal spasm post-op
-Improving substantially
- Discussed with speech therapy and advance to IDDSI level 6
- Stop IV steroids and IV antibiotics and IV fluids
- Plan to discharge today
# Leukocytosis likely stress reaction/ steroids
#hyperbili - indirect
-hxt of gallstones
-LFT in AM
-denied any abdominal pain
-abdominal US ordered
# Recent C4 C6 ACDF
-IV Ancef post-op (patient was on Keflex at home)
-Dr. Velasquez to see patient-appreciated
#Anxiety
# Hypertension
- labetalol continued
# DVT prophylaxis
- Lovenox subcu
# CODE STATUS
- Full code
Anticipated Discharge: Today
Subjective/Interval History
-
Date of Service: April 23, 2025
Patient doing well and eating solid food today.
Objective Data
-
Labs:
Laboratory Results
04/23/25
06:07
WBC 9.0
Hgb 12.7 L
Hct 35.9 L
Plt Count 216
Sodium 140
Potassium 4.2
Chloride 109 H
Carbon Dioxide 24
BUN 19
Creatinine 0.7
Glucose 165 H
Calcium 9.2
Vital Signs:
Vital Signs
Temp Pulse Resp BP Pulse Ox
98.2 F 79 18 151/89 99
04/23/25 07:10 04/23/25 07:10 04/23/25 07:10 04/23/25 07:10 04/23/25 07:10
I&O
04/22/25 04/23/25 04/24/25
06:59 06:59 06:59
Intake Total 1200 / 1200 1320 / 1320
Output Total 900 / 900 800 / 800
Balance 300 / 300 520 / 520
--- NOTE | 2025-04-23 12:14 | PTOTSP ---
Videofluoroscopic Swallow Study
Patient presents oral stage within functional limits and mild-moderately impaired pharyngeal stage dysphagia secondary to post-operative changes to anatomy (suspect pre-verterbal swelling, cervical hardware) and physiology s/p ACDF C4-C6
(04/18/2025). See patient care notes for details of study.
Recommend:
1. IDDSI Level 6 Soft/Bite Sized, Thin Liquids
2. Medications: crushed in puree if medically cleared to do so
3. Strategies: upright to 90 degrees, SINGLE sips/bites, slow rate, MULTIPLE swallows with EFFORT (to help clear throat of food) and SINGLE sip of liquid after solids (to help clear throat of food), upright after PO intake for at least 30 minutes
4. Oral care 3x daily
5. Dysphagia tx at the acute care level and after D/C for instruction in compensations and to determine if/when diet advancement appropriate.
--- NOTE | 2025-04-23 13:18 | W.DCSUMMARY ---
Discharge Summary
Discharge Data
Date of Admission: 04/20/25
Date of Discharge: 04/23/25
-
Pending Results: No
Hospital Course
Patient is 64 years old male with history of hypertension, diabetes mellitus, CAD, who underwent recent C4 C6 anterior cervical discectomy and fusion on 04/18 and presented to the hospital with dysphagia nausea and vomiting and esophageal spasm for
surgery. Patient was admitted to the hospital and given hydration with IV fluids, kept n.p.o., GI and speech therapy consulted. Patient was treated with PPI, IV steroids. He is oral antibiotics were switched to IV while hospitalized. Spine
surgeon was also consulted. Consultants all agree that this was postop inflammation and probably some underlying motility disorder. He did have an upper EGD prior to this event and GI did not feel the need to repeat that. Patient improved. He
had video swallowing study performed and he was able to switch to level 6 diet. He tolerated solid diet okay. Recommended to follow-up with his PCP, his outpatient GI, spine surgeon, and speech therapy as outpatient. Otherwise, patient is
hemodynamically stable his dysphagia has improved substantially and he is very eager to go home today. He will be discharged in relatively stable condition today.
Discharge duration: 32 minutes
Discharge Plan
-
Patient Disposition: Home (Routine Discharge)
Discharge Diagnosis/Procedures: Dysphagia. Recent C4-C6 cervical discectomy and fusion.
Old medical problems:
Coronary artery disease
Hypertension
Diabetes mellitus
Chronic back pain
Gastroesophageal reflux disease
Irritable bowel syndrome
Diet: Other diet
Additional Diets: Soft and bite-size diet and advance to regular as tolerated.
Activity: As tolerated
Blood Work: Please PCP to order CBC, BMP within 1
Referrals:
Speech therapy [Other] - in one to two weeks
Referral Note: Dysphagia
Kathleen Bruno PA-C [Family Provider, Family Practice] - in less than 1 week
Prescriptions:
Continued
famotidine 40 mg Tablet
40 mg PO DAILY
trazodone 100 mg Tablet
100 mg PO HS
pantoprazole 40 mg Tablet,Delayed Release (Dr/Ec)
40 mg PO DAILY
aspirin 81 mg Tablet
81 mg PO DAILY
sertraline 50 mg Tablet
50 mg PO DAILY
Medical Marijuana
1 dose inhalation PRN PRN (Reason: anxiety/pain)
metoprolol succinate 50 mg Tablet Extended Release 24 Hr
50 mg PO DAILY
Patient Comments:
Dr Scott gee with pt taking this when home today
cephalexin 500 mg Capsule
500 mg PO QID
oxycodone 5 mg Tablet
10 mg PO Q4H PRN (Reason: moderate pain)
tizanidine 2 mg Capsule
2 mg PO Q8H PRN (Reason: muscle spasms)
Discharge Orders:
Discharge Patient (As Directed); Ordered 04/23/25
Ordered By: Andrew Lawson
Discharge Date and Time
Discharge Date/Time: 04/23/25 15:19
Print Language: SERBIAN
[2025-04-23 14:22] VITALS: BP 157/89
--- NOTE | 2025-04-24 09:08 | PN.CDI ---
CDI
- -
CDI:
Physician Documentation Request
Admit Date: 04/20/25 21:14
Dear Doctor Velasquez,
Patient admitted with dysphagia.
ER Physician Documentation: 'Two days ago, after surgery, went home and vomited 'for 8 hours straight' since then his neck and upper chest wall muscles have been sore. Next day he found he could not swallow without regurgitating it up.'
04/22 Ortho consult:'Pt s/p 2 level acdf with dysphagia. No problems breathing. Had a very thick neck with retraction'
Please clarify the following:
Dysphagia is a complication of the surgery
Dysphagia is unexpected but is NOT a complication of the surgery
Dysphagia is an expected occurrence and is not a complication of surgery
Dysphagia is inherent to/unavoidable during the surgery and is not a complication
Other
Use of terms such as suspected, likely, concern for, or probable (associated with a specific diagnosis that is being evaluated, monitored, or treated as if it exists) are acceptable and can be coded in the inpatient setting, when documented at the
time of discharge.
Thank you,
Kellie Amos RN, BSN
CDI Specialist
Available via [place] text
Please use your independent medical judgment in providing your response.
--- NOTE | 2025-04-27 11:51 | W.PN.SP ---
Today's Communication / Plan
-
I had spoken with him about dysphagia prior to srgery.
Higherrosk given age and level of fusion. Even moregiven his thicjness.
Not a complication
Subjective / Objective
Subjective Data
Pt admitted for dysphagia
Objective Data
Vital Signs
Temp Pulse Resp BP Pulse Ox
98.4 F 82 16 157/89 98
04/23/25 14:22 04/23/25 14:22 04/23/25 14:22 04/23/25 14:22 04/23/25 14:22
Lab Data
04/23/25 06:07
04/23/25 06:07
== END 2025-04-23 15:19 | disposition home or self-care (01) | DRG 392 ==
LOC: 4 EAST ACU 21:14
PROVIDERS: Emergency Medicine; Registered Nurse; Student in an Organized Health Care Education/Training Program; ADMITTING PHYSICIAN Internal Medicine; ATTENDING PHYSICIAN Hospitalist; CONSULT PHYSICIAN Internal Medicine Gastroenterology; CONSULT PHYSICIAN Orthopaedic Surgery Orthopaedic Surgery of the Spine; EMERGENCY PHYSICIAN Emergency Medicine; FAMILY PHYSICIAN Physician Assistant Medical
DX: R13.10 Dysphagia, unspecified (principal); I47.20 Ventricular tachycardia, unspecified; K22.4 Dyskinesia of esophagus; I10 Essential (primary) hypertension; G89.29 Other chronic pain; M54.2 Cervicalgia; E78.00 Pure hypercholesterolemia, unspecified; F41.9 Anxiety disorder, unspecified; K58.1 Irritable bowel syndrome with constipation; D72.829 Elevated white blood cell count, unspecified; E11.42 Type 2 diabetes mellitus with diabetic polyneuropathy; K76.0 Fatty (change of) liver, not elsewhere classified; K63.5 Polyp of colon; I25.10 Atherosclerotic heart disease of native coronary artery without angina pectoris; K21.00 Gastro-esophageal reflux disease with esophagitis, without bleeding; G47.00 Insomnia, unspecified; R33.9 Retention of urine, unspecified; I25.2 Old myocardial infarction; Z87.891 Personal history of nicotine dependence; Z90.49 Acquired absence of other specified parts of digestive tract; Z88.8 Allergy status to other drugs, medicaments and biological substances; Z79.82 Long term (current) use of aspirin; Z79.85 Long-term (current) use of injectable non-insulin antidiabetic drugs; Z98.1 Arthrodesis status
CPT/HCPCS: 70360; 71046; 72020; 74230; 76700; 80048; 80053; 80076; 83735; 84100; 84484; 85025; 85027; 86900; 86901; 92526; 92610; 92611; 93005; 96361; 96374; 99285